=== PATIENT | male | born 1970 | race African-American/Black ===

== ENCOUNTER 2017-08-03 20:15 | Emergency (ER) | payer SELFPAY ==
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
[2017-08-03 20:27] VITALS: TEMP 97.9
[2017-08-03 22:06] VITALS: BP 132/70; PULSE 68; RESP 16; O2SAT 96
== END 2017-08-03 22:05 | disposition home or self-care (01) ==
DX: F10.920 Alcohol use, unspecified with intoxication, uncomplicated (principal)